=== PATIENT | female | born 1950 | race Caucasian/White ===

== ENCOUNTER 2018-02-10 16:23 | Inpatient (IN) | payer MEDICARE, BC ==
[~2018-02-10] VITALS: Ht 160 cm; Wt 35.4 kg
[2018-02-10 16:59] LABS: BASOPHILS # (AUTO) 0.11 x10^3/uL (0-0.1); BASOPHILS % (AUTO) 1 % (0-1); EOSINOPHILS # (AUTO) 0.06 x10^3/uL (0-0.4); EOSINOPHILS % (AUTO) 1 % (1-7); LYMPHOCYTES # (AUTO) 1.96 x10^3/uL (1-3.4); LYMPHOCYTES % (AUTO) 17 % (22-44); MD NO; MEAN CORPUSCULAR HEMOGLOBIN 33.1 pg (27.0-34.8); MEAN CORPUSCULAR HGB CONC 33.8 g/dL (32.4-35.8); MEAN CORPUSCULAR VOLUME 98.1 fL (80-100); MEAN PLATELET VOLUME 10.5 fL (7.4-10.4); MONOCYTES # (AUTO) 0.51 x10^3/uL (0.2-0.8); MONOCYTES % (AUTO) 5 % (2-9); NEUTROPHILS # (AUTO) 8.62 x10^3/uL (1.8-6.8); NEUTROPHILS % (AUTO) 77 % (42-75); PLATELET COUNT 226 x10^3/uL (130-400); RED BLOOD COUNT 4.89 x10^6/uL (3.82-5.3); RED CELL DISTRIBUTION WIDTH 13.1 % (9.6-15.2)
[2018-02-10] MEDS ORDERED: ONDANSETRON 2MG/ML, 2ML IVPush ONE (17:00)
[2018-02-10] MEDS ORDERED: SODIUM CHLORIDE 0.9% 1,000ML IVBOLUS ONE (17:00)
[2018-02-10 17:08] LABS: ANION GAP 9 mmol/L (5-15); CALCIUM 9.1 mg/dL (8.5-10.1); CHLORIDE 106 mmol/L (98-107)
[2018-02-10 17:09] LABS: ALANINE AMINOTRANSFERASE 44 U/L (12-78); ALBUMIN 3.6 g/dL (3.4-5.0)
[2018-02-10 17:11] LABS: ALKALINE PHOSPHATASE 105 U/L (45-117); BILIRUBIN,TOTAL 0.5 mg/dL (0.2-1.0); TOTAL PROTEIN 7.4 g/dL (6.4-8.2)
[2018-02-10] MEDS ORDERED: OMNIPAQUE 350 MG/ML, 100ML BOTTLE ONE (17:57)
[2018-02-10] MEDS ORDERED: PROCHLORPERAZINE 5 MG/ML, 2ML IVPush ONE (18:00)
[2018-02-10] MEDS ORDERED: DIPHENHYDRAMINE 50 MG/ML, 1ML IVPush ONE (18:00)
[2018-02-10] MEDS ORDERED: DIPHENHYDRAMINE 50 MG/ML, 1ML ONE (18:00)
[2018-02-10] MEDS ORDERED: PROCHLORPERAZINE 5 MG/ML, 2ML ONE (18:00)
[2018-02-10] MEDS ORDERED: ONDA4TAB7 PO (18:25)
[2018-02-10] MEDS ORDERED: ALPR-475 PO (18:25)
[2018-02-10] MEDS ORDERED: GOLYTELY 4,000ML ORAL.SOL PO ONE (18:30)
[2018-02-10] MEDS ORDERED: ACETAMINOPHEN 325 MG TABLET PO PRN (19:00)
[2018-02-10 19:34] VITALS: BP 100/68
[2018-02-10] MEDS: SODIUM CHLORIDE FLUSH 10ML SYR IVF SCH (20:48)
[2018-02-10] MEDS: HEPARIN 5,000 UNITS/ML, 1ML SQ SCH (20:48)
[2018-02-10 22:32] LABS: CULTURE INDICATED? NO; MICROSCOPIC NOT IND
[2018-02-11 00:39] VITALS: BP 103/71
[2018-02-11] MEDS: HEPARIN 5,000 UNITS/ML, 1ML SQ SCH ×3 (03:13→20:43)
[2018-02-11] MEDS: ONDANSETRON 4 MG TABLET PO PRN ×3 (07:28→17:04)
[2018-02-11 07:35] VITALS: BP 146/81
[2018-02-11] MEDS: SODIUM CHLORIDE FLUSH 10ML SYR IVF SCH ×2 (10:00→20:45)
[2018-02-11] MEDS: POLYETHYLENE GLYCOL 17 GM PACKET PO SCH (10:00)
[2018-02-11] MEDS: SENNA/DOCUSATE TABLET PO SCH (10:01)
[2018-02-11] MEDS: BISACODYL 10 MG SUPP PR SCH (10:01)
[2018-02-11 13:20] VITALS: BP 106/73
[2018-02-11 18:45] VITALS: BP 131/77
[2018-02-12 00:52] VITALS: BP 96/59
[2018-02-12 04:44] LABS: ANION GAP 7 mmol/L (5-15); CALCIUM 8.2 mg/dL (8.5-10.1); CHLORIDE 109 mmol/L (98-107)
[2018-02-12 04:47] LABS: CREATININE 0.77 mg/dL (0.55-1.02)
[2018-02-12] MEDS: HEPARIN 5,000 UNITS/ML, 1ML SQ SCH ×3 (04:48→20:03)
[2018-02-12 05:45] LABS: BASOPHILS # (AUTO) 0.06 x10^3/uL (0-0.1); BASOPHILS % (AUTO) 1 % (0-1); EOSINOPHILS % (AUTO) 0 % (1-7); LYMPHOCYTES # (AUTO) 2.24 x10^3/uL (1-3.4); LYMPHOCYTES % (AUTO) 21 % (22-44); MD NO; MEAN CORPUSCULAR HEMOGLOBIN 33.3 pg (27.0-34.8); MEAN CORPUSCULAR HGB CONC 33.7 g/dL (32.4-35.8); MEAN CORPUSCULAR VOLUME 98.9 fL (80-100); MEAN PLATELET VOLUME 12.1 fL (7.4-10.4); MONOCYTES # (AUTO) 0.99 x10^3/uL (0.2-0.8); MONOCYTES % (AUTO) 9 % (2-9); NEUTROPHILS % (AUTO) 69 % (42-75); PLATELET COUNT 160 x10^3/uL (130-400); RED BLOOD COUNT 4.54 x10^6/uL (3.82-5.3); RED CELL DISTRIBUTION WIDTH 13.1 % (9.6-15.2)
[2018-02-12 07:15] VITALS: BP 104/67
[2018-02-12] MEDS: BISACODYL 10 MG SUPP PR SCH (09:00)
[2018-02-12] MEDS: SENNA/DOCUSATE TABLET PO SCH (10:23)
[2018-02-12] MEDS: SODIUM CHLORIDE FLUSH 10ML SYR IVF SCH ×2 (10:23→21:00)
[2018-02-12] MEDS: POLYETHYLENE GLYCOL 17 GM PACKET PO SCH (10:23)
[2018-02-12 13:30] VITALS: BP 120/77
[2018-02-12 20:14] VITALS: BP 107/74
[2018-02-13 01:00] VITALS: BP 148/93
[2018-02-13] MEDS: HEPARIN 5,000 UNITS/ML, 1ML SQ SCH ×3 (05:07→23:47)
[2018-02-13 05:11] LABS: HCT (SEDRATE) 44.9 % (34.6-47.8)
[2018-02-13 05:30] LABS: HIGH-SENSITIVITY CRP < 0.02 mg/dL (0.02-0.30)
[2018-02-13 05:33] LABS: PREALBUMIN 20.3 mg/dL (20.0-40.0)
[2018-02-13 06:51] VITALS: BP 120/87
[2018-02-13] MEDS: SODIUM CHLORIDE FLUSH 10ML SYR IVF SCH ×2 (09:00→21:00)
[2018-02-13] MEDS: PANTOPROZOLE 40MG TABLET PO SCH (09:44)
[2018-02-13] MEDS: D5%-0.45NACL+KCL 20MEQ 1,000 ML IV SCH (09:44)
[2018-02-13] MEDS: POLYETHYLENE GLYCOL 17 GM PACKET PO SCH ×4 (09:44→20:53)
[2018-02-13] MEDS ORDERED: SODIUM PHOSPHATE 30 MMOL in SODIUM CHLORIDE 0.9% 500 ML IV ONE (10:00)
[2018-02-13] MEDS ORDERED: MOVIPREP POWDER 1 PREP KIT PO SCH (11:30)
[2018-02-13 12:24] VITALS: BP 152/99
[2018-02-13 14:43] LABS: AMPHETAMINE SCREEN, URINE Negative (Negative); BARBITURATE SCREEN, URINE Negative (Negative); BENZODIAZEPINE SCREEN, URINE Positive (Negative); CANNABINOID SCREEN, URINE Positive (Negative); COCAINE SCREEN, URINE Negative (Negative); METHADONE SCREEN, URINE Negative (Negative); OPIATE SCREEN, URINE Negative (Negative)
[2018-02-13] MEDS: FLORASTOR 250 MG CAPSULE PO SCH (15:45)
[2018-02-13] MEDS: SIMETHICONE 125 MG CHEW TAB PO SCH ×3 (15:45→20:54)
[2018-02-13 18:46] VITALS: BP 116/81
[2018-02-14] MEDS: D5%-0.45NACL+KCL 20MEQ 1,000 ML IV SCH (01:49)
[2018-02-14] MEDS: FLORASTOR 250 MG CAPSULE PO SCH ×2 (04:05→09:54)
[2018-02-14 04:10] VITALS: BP 100/68
[2018-02-14] MEDS: POLYETHYLENE GLYCOL 17 GM PACKET PO SCH (06:00)
[2018-02-14 07:16] VITALS: BP 142/84
[2018-02-14] MEDS ORDERED: LACTULOSE 20 GM/30 ML UDC PO SCH (09:00)
[2018-02-14] MEDS: SIMETHICONE 125 MG CHEW TAB PO SCH ×3 (09:53→16:30)
[2018-02-14] MEDS: SODIUM CHLORIDE FLUSH 10ML SYR IVF SCH (09:54)
[2018-02-14] MEDS: HEPARIN 5,000 UNITS/ML, 1ML SQ SCH ×2 (09:54→16:30)
[2018-02-14] MEDS: PANTOPROZOLE 40MG TABLET PO SCH (09:54)
[2018-02-14 12:53] VITALS: BP 156/91
[2018-02-14] MEDS ORDERED: LACT20SO13 PO (13:54)
[2018-02-14] MEDS ORDERED: PANT40TA5 PO (13:54)
[2018-02-14] MEDS ORDERED: PINK LADY ENEMA 490 ML BOTTLE PR ONE (15:00)
== END 2018-02-14 19:01 | disposition home or self-care (01) | DRG 391 ==
LOC: ED 18:18 → EDIP 18:19 → ED 18:34 → 3NW 19:06
PROVIDERS: ADMIT Internal Medicine; ATTEND Internal Medicine
PROC: 0T9B70Z Drainage of Bladder with Drainage Device, Via Natural or Artificial Opening (ICD-10-PCS; principal; 2018-02-10)
DX: K59.09 Other constipation (principal); E43 Unspecified severe protein-calorie malnutrition; K21.0 Gastro-esophageal reflux disease with esophagitis; F12.90 Cannabis use, unspecified, uncomplicated; F41.9 Anxiety disorder, unspecified; R00.0 Tachycardia, unspecified; K22.8 Other specified diseases of esophagus; G89.29 Other chronic pain; R13.10 Dysphagia, unspecified; R62.7 Adult failure to thrive; I71.2 Thoracic aortic aneurysm, without rupture; Z90.49 Acquired absence of other specified parts of digestive tract; Z79.899 Other long term (current) drug therapy; Z85.048 Personal history of other malignant neoplasm of rectum, rectosigmoid junction, and anus; Z88.4 Allergy status to anesthetic agent; Z88.8 Allergy status to other drugs, medicaments and biological substances
CPT/HCPCS: 36415; 71250; 74018; 74177; 74220; 80048; 80053; 80307; 81003; 83690; 83735; 84100; 84134; 85025; 85651; 86141; 87806; 96374; 96375; 99285; G0378; J1644; Q0162; Q9967; G0475; J0780; J1200; J3480; J7030; J7040